=== PATIENT | female | born 1960 | race Hispanic/Latino ===

== ENCOUNTER 2017-07-26 19:36 | Emergency (ER) | payer OTHER ==
[~2017-07-26] VITALS: Ht 162.6 cm; Wt 65.9 kg
--- NOTE | 2017-07-26 19:38 | ED.REPORT ---
HPI-Extremity Problem Lower Date of Service Jul 26, 2017 ED Provider: Randy Garcia MD Fouzia is an otherwise healthy 56-year-old female presenting with chief complaint of right ankle pain. She reports that she was playing pickle ball, and stepped on a ball while running. She reports hearing a pop and falling to the ground. She attempted to walk on the ankle but found it quite painful. Patient reports that she had 2 episodes of syncope shortly afterwards. Her service inspector reports that she walked off the court, and collapsed striking the back of her head against the court. He reports that he helped her up and was holding her to the car when she collapsed again in her arms and was helped to the ground. She was confused for a minute or 2 afterwards. Patient states she had a sensation of darkness closing in on her eyes. Denies chest pain, palpitation, shortness of breath, cough, wheeze, incontinence, tongue biting. Denies history of GI bleed, melena, hematochezia, heartburn, abdominal pain. Denies history of syncope, cardiac disease. Denies severe headache, vomiting, seizure, use of blood thinners, neck pain, neurological symptoms such as weakness or numbness in any extremity. Nursing Notes Stated Complaint: ANKLE PAIN Nursing Notes Reviewed: Yes Allergies: Coded Allergies: No Known Allergies (Unverified , 07/26/17) General Time Seen by MD: 19:38 Chief Complaint Ankle injury right Past Medical History Past Medical History Hypothyroid Review of Systems Review of Systems Note: Negative unless stated otherwise in history of present illness Physical Exam General: Well appearing, well developed, well nourished, no acute distress. Right foot/ankle: Tender over the posterior lateral malleoli, associated swelling. Negative redness, heat, bruising. Nontender over teary talofibular, calcaneofibular and posterior Talofibular ligaments. Nontender over the medial malleoli, deltoid ligament. Nontender over the base of fifth metatarsal and navicular. DP and PT pulses 2+. Sensation and brisk capillary refill intact and distal phalanges. Good active range of motion, provokes pain. Right knee: Normal to inspection, nontender, full range of motion. Head: Atraumatic, normocephalic. Eyes: No scleral icterus or injection. No discharge. Vision grossly intact. ENT: Voice clear, hearing grossly intact. Respiratory: No respiratory distress, no increased work of breathing. Speaks in complete sentences. Skin: Warm and dry. Neurological: Grossly nonfocal. Psychological: alert and oriented. Speech appropriate, linear and logical. Behavior appropriate. Initial Vital Signs Vital Signs (First) Date Time Temp Pulse Resp B/P Pulse Ox O2 Delivery O2 Flow Rate FiO2 07/26/17 19:39 36.6 65 121/72 99 Room Air 07/26/17 21:46 20 Normal Interpretation & Diagnostics Lab Results Interpretation Result Diagram: 07/26/17202307/26/172023 Test 07/26/17 19:40 07/26/17 20:24 Hold Purple Top Tube Received (Received) Hold Blue Top Tube Received (Received) Hold Graham Top Tube Received (Received) White Blood Count 9.2th/mm3 (3.8-10.1) Red Blood Count 4.58mil/mm3 (3.90-5.20) Hemoglobin 13.8g/dL (12.0-15.6) Hematocrit 39.5% (35.0-46.0) Mean Corpuscular Volume 86.2fL (81-100) Mean Corpuscular Hemoglobin 30.1pg (27.0-35.0) Mean Corpuscular Hemoglobin Concent 34.9% (32.0-37.0) Red Cell Distribution Width 12.3% (12.3-15.4) Platelet Count 313bil/L (150-400) Sodium Level 137mEq/L (134-144) Potassium Level 3.5mEq/L (3.5-5.2) Chloride Level 99mEq/L (97-108) Carbon Dioxide Level 21mmol/L (18-29) Blood Urea Nitrogen 13mg/dL (6-24) Creatinine 0.70mg/dL (0.57-1.00) Estimat Glomerular Filtration Rate 124mL/min (>59) Glucose Level 101mg/dL (60-99) Calcium Level 9.4mg/dL (8.5-10.1) Total Bilirubin 0.2mg/dL (0.0-1.2) Aspartate Amino Transf (AST/SGOT) 14U/L (0-50) Alanine Aminotransferase (ALT/SGPT) 9U/L (0-32) Alkaline Phosphatase 45U/L (25-150) Troponin T < 0.010ug/L (0.0-0.011) Total Protein 6.7g/dL (6.4-8.4) Albumin 4.3g/dL (3.4-5.0) Thyroid Stimulating Hormone (TSH) 1.090uIU/mL (0.450-4.500) ECG Interpretation ECG Interpretation: Normal sinus rhythm with a rate of 66 and regular. No ischemic changes Time: 20:37 Interpreted by: ED physician (Dr. Garcia) X-Ray Interpretation Xray Interpretation: PROCEDURE: X-RAY RIGHT ANKLE, MINIMUM THREE VIEWS ([id number]) INDICATIONS: ankle strain IMPRESSION: 1. Mildly displaced fracture of the lateral malleolus. Interpretation / Wet Read by: Interpret - Radiologist Procedures Splint Application - Fx Mgt Splint Application- Fx Mgt: Right foot, tall cast boot. Time: 21:15 Procedure Performed by: Roll On Man Post-Procedure / Complications: Post splint vascular nl (inspected by me), Post splint neuro nl (inspected by me) Re-Eval/Medical Decision Med Decision/Clinical Course Otherwise healthy 56-year-old female with a chief complaint of right ankle pain secondary to an accident playing pickle ball. He reports difficult in walking. Patient also reports 2 syncopal episodes with a presyncopal prodrome after ambulating on the affected limb. Her service inspector reports she struck her head against the Court. Patient denies severe headache, vomiting, seizure, use of blood thinners, neck pain, neurologic symptoms. Physical examination reveals tenderness over lateral malleoli with associated swelling. Otherwise nontender, neurovascularly intact, good range of motion. Examination otherwise benign, normal vital signs. Cervical spine is cleared by nexus criteria, head CT is deferred. I discussed the case with Dr. garcia, who recommends screening EKG. EKG returns normal as do CBC, CMP, troponin and thyroid stimulating hormone. X- rays positive for a distal fibula fracture. I reassured against dangerous causes of syncope including cardiac, PE, CVA/TIA, hypovolemia. I believe this is vasovagal syncope. I discuss case with Dr. garcia, we agreed to place the patient in a walking boot, crutches, follow-up. Tall cast boot is placed by the sewing pattern layout technician, I confirmed circulation and sensation intact afterwards. Discussed over-the- counter analgesia and provide a small amount of Percocet to supplement with precautions. Provided were to return precautions. Patient verbalizes understanding of and consent to the plan. Discharge & Departure Impression: Primary Impression: Fracture of distal end of right fibula Encounter type: initial encounter Fracture type: closed Fracture morphology : unspecified fracture morphology Qualified Code: S82.831A - Other fracture of upper and lower end of right fibula, initial encounter for closed fracture Additional Impression: Vasovagal syncope Disposition: Home Discharge Condition All VS Reviewed: Yes Condition: Stable Patient Instructions: Ankle Fracture (ED), Crutch Instructions (ED) Additional Instructions: Evaluation in the emergency department for ankle pain included interview, physical examination x-rays, blood work and EKG, all of which are reassuring that your episodes of passing out were unlikely because by immediately dangerous conditions such as a heart condition or blood clot in your lungs. X-ray reveals a fracture in your ankle. We will treat this by putting it in a cast boot and continue crutches. Do not bear weight on this foot. Keep the boot on at all times except when bathing or icing the foot. Elevate the foot as much as possible and apply ice 2-3 times a day. The pain is best treated with 500 mg of naproxen (Aleve) every 12 hours, or 1000 mg of acetaminophen (Tylenol) every 6 hours. These drugs can be taken at the same time for more severe pain. I have written a prescription for a small amount of hydrocodone/acetaminophen 5/325 mg which can be SUBSTITUTED for the Tylenol to treat more severe pain. Do not take them together, and do not drink alcohol or operate a vehicle within 4 hours of taking this medication. I will give you a referral to see Dr. Iban Yost, our orthopedic surgeon. Please contact her office to arrange to be seen in the next week or so. Return to emergency department for any new or worsening symptoms including increasing pain, a cold or numb foot. Your thyroid-stimulating hormone was measured at 1.090uIU/mL (0.450-4.500 is normal). This is in normal range. Please discuss this with your primary care provider. Referrals: Iban Yost MD EDSupervising Provider for APC: Randy Garcia MD Attending Statement Attending attestation: I saw this patient in conjunction with Richi Coronel PA-C. I agree with the workup, evaluation, treatment and disposition. Randy Garcia MD copies to: Elizabeth Choe MD; Iban Yost MD, Beck O MD Jul 26, 2017 19:38 Richi Coronel PA-C Jul 26, 2017 20:02
[2017-07-26 19:39] VITALS: BP 121/72; PULSE 65; O2SAT 99
[2017-07-26 20:29] LABS: Mean Corpuscular Hemoglobin 30.1 pg (27.0-35.0); Mean Corpuscular Volume 86.2 fL (81-100)
--- NOTE | 2017-07-26 20:42 | DRSVH ---
PROCEDURE: X-RAY RIGHT ANKLE, MINIMUM THREE VIEWS ([id number]) INDICATIONS: ankle strain TECHNIQUE: 3 views of the ankle were acquired. COMPARISON: None. FINDINGS: Bones: There is a mild displaced transverse fracture of the lateral malleolus. Ankle mortise is nor kenny aligned. No suspicious bony lesions. Soft tissues: There is soft tissue swelling over the lateral malleolus. No tibiotalar joint effusio n. Achilles tendon appears normal. IMPRESSION: 1. Mildly displaced fracture of the lateral malleolus. Dictated by: Jorge Luis Ribeiro M.D. on 07/26/2017 at 20:32 Approved by: Jorge Luis Ribeiro M.D. on 07/26/2017 at 20:40
[2017-07-26 20:51] LABS: TROPONIN T < 0.010 ug/L (0.0-0.011)
[2017-07-26] MEDS ORDERED: _HYDROcodone/APAP 5-325 mg Tablet PO PRN (21:05)
[2017-07-26] MEDS ORDERED: _oxyCODONE/APAP 5-325 mg Tablet PO PRN (21:15)
[2017-07-26 21:46] VITALS: BP 125/85; PULSE 10; RESP 20; O2SAT 99
== END 2017-07-26 21:47 | disposition home or self-care (01) ==
LOC: SED 19:36
DX: S82.831A Other fracture of upper and lower end of right fibula, initial encounter for closed fracture (principal); R55 Syncope and collapse; W01.0XXA Fall on same level from slipping, tripping and stumbling without subsequent striking against object, initial encounter; Y93.02 Activity, running; Y99.8 Other external cause status; Y92.89 Other specified places as the place of occurrence of the external cause; I95.1 Orthostatic hypotension; E03.9 Hypothyroidism, unspecified